=== PATIENT | female | born 1960 | race Caucasian/White ===

== ENCOUNTER 2024-08-22 07:24 | Outpatient (REF) | payer MEDICARE, MEDICAID, SELFPAY ==
--- NOTE | ~2024-08-22 | CT_ITS ---
EXAMINATION: CT HEAD WITHOUT CONTRAST CLINICAL INFORMATION: MCI COMPARISON: None available. TECHNIQUE: Contiguous axial imaging was performed from the skull base to vertex without intravenous administration of contrast. This CT examination was performed using dose optimization techniques as appropriate, variously including the following: *Automated exposure control *Adjustment of mA and/or kV according to patient size (this includes techniques or standardized protocols for targeted exams where dose is matched to indication/reason for exam; i.e. extremities or head) *Use of iterative reconstruction technique DLP: 771 mGy-cm FINDINGS: No acute intracranial hemorrhage, mass effect, midline shift, hydrocephalus or herniation. Prominence of the extra-axial CSF spaces cerebral sulci involving mostly the frontal poles. [place]-white matter differentiation is normal. Bilateral multifocal patchy deep periventricular white matter hypodensities involving centrum semiovale and melo radiata. Craniocervical junction demonstrates normal position of the cerebellar tonsils. Posterior cranial fossa contents demonstrated no acute hemorrhage or mass effect. Calcified plaques in the cavernous supraclinoid segments both ICAs and V4 segments of the vertebral arteries. No acute fracture, bony calvarium. No air-fluid levels in the paranasal sinuses. Poor pneumatization right frontal sinus. Tympanic cavities and mastoid cells are aerated. Pneumatized right petrous apex, congenital. CT/CT head/brain wo IV con IMPRESSION: No acute intracranial hemorrhage. Small vessel occlusive disease. Bifrontal lobe atrophy. Atherosclerosis disease, intracranial. Electronically signed by: Walter Carroll MD 08/22/2024 08:04 AM EDT
--- OUTSIDE RECORDS SUMMARY | 2024-08-22 07:26 | XMS_ITS | Clinical Summary ---
Author Organization [facility] Facility Address [address] [address] Care Team Providers Care [employer] Professor Name Role Phone Ge Brown MD Primary Care Provider [phone] Allergies Active Allergy Reactions Criticality Noted Date Comments Hydrochlorothiazide 03/08/2021 Lactose Diarrhea 10/23/2017 Medications zolpidem (AMBIEN) 10 MG tablet Take 10 mg by mouth at night if needed 09/14/2022 Active Trospium Chloride ER 60 MG capsule sustained-relea se 24 hr Take by mouth 1 (one) time each day 07/08/2022 Active tolterodine LA (DETROL LA) 4 MG 24 hr capsule Take by mouth 1 (one) time each day 08/27/2022 Active Spiriva Respimat 2.5 MCG/ACT aerosol solution INHALE 1 PUFF INTO THE LUNGS DAILY 08/05/2022 Active spironolactone (ALDACTONE) 25 MG tablet Take 50 mg by mouth 1 (one) time each day 08/21/2022 Active predniSONE (DELTASONE) 10 MG tablet TAKE 4 TABS BY MOUTH DAILY X3 DAYS, 3 TABS DAILY X3 DAYS, 2 TABS DAILY X3 DAYS, 1 TAB DAILY X3 DAYS 09/01/2022 Active pantoprazole (PROTONIX) 20 MG EC tablet Take 20 mg by mouth 1 (one) time each day 09/12/2022 Active omeprazole OTC (PriLOSEC OTC) 20 MG EC tablet Take 20 mg by mouth 08/03/2016 Active metoprolol tartrate 25 MG tablet Take 25 mg by mouth 05/01/2017 Active meloxicam (MOBIC) 7.5 MG tablet Take 7.5 mg by mouth 1 (one) time each day 09/04/2022 Active losartan (COZAAR) 100 MG tablet Take 100 mg by mouth 1 (one) time each day 07/12/2022 Active levothyroxine (SYNTHROID, LEVOTHROID) 175 MCG tablet Take 175 mcg by mouth 1 (one) time each day 08/22/2022 Active lamoTRIgine (LaMICtal) 200 MG tablet Take 200 mg by mouth 1 (one) time each day in the evening 10/03/2022 Active labetalol (NORMODYNE) 100 MG tablet TAKE 1 TABLET BY MOUTH 2 TIMES DAILY FOR 180 DAYS. 08/21/2022 Active hydrALAZINE 50 MG tablet Take 50 mg by mouth 08/09/2022 Active furosemide (LASIX) 20 MG tablet Take 20 mg by mouth 1 (one) time each day 09/04/2022 Active fenofibrate (TRICOR) 54 MG tablet Take 54 mg by mouth 1 (one) time each day 07/31/2022 Active clonazePAM (KlonoPIN) 2 MG tablet Take 2 mg by mouth in the morning and 2 mg in the evening. 09/07/2022 Active dicyclomine (BENTYL) 10 MG capsule TAKE 1 TO 2 CAPSULES BY MOUTH 4 TIMES A DAY NEEDED 08/05/2022 Active buPROPion XL (Wellbutrin XL) 300 MG 24 hr tablet Take 300 mg by mouth 09/23/2011 Active ARIPiprazole (ABILIFY) 15 MG tablet Take 15 mg by mouth 1 (one) time each day 10/01/2022 Active Albuterol Sulfate 108 (90 Base) MCG/ACT aerosol powder Inhale 03/06/2017 Acti ve amLODIPine (NORVASC) 10 MG tablet Take 10 mg by mouth 1 (one) time each day Active Active Problems Problem Noted Date Diagnosed Date Essential hypertension 10/14/2022 Obstructive sleep apnea 10/12/2022 10/13/19 Chronic obstructive pulmonary disease 10/12/2022 10/12/2022 Chronic low back pain 10/12/2022 10/12/2022 Syndrome of inappropriate vasopressin secretion 10/12/2022 10/12/2022 History of cardiac catheterization 08/19/2022 10/12/2022 Overview (10/12/2022): Done on 07/22/2022 at [facility] indication:shortness of breath w/ exertion Last Assessment & Plan: Heart catheterization revealed no obstructive coronary disease all arteries documented as having only minor luminal irregularities. We emphasized given her tobacco usage and risk factors this is very good news she does in fact have severe pulmonary hypertension. She has chronic dyspnea she is a longtime smoker she is still smoking three quarters of a pack of cigarettes per day she knows she should be a non-smoker it has been very challenging for her to give this up. Main risk factor modification Dyspnea on exertion 06/20/2022 10/12/2022 Overview (10/12/2022): Last Assessment & Plan: Left heart cath in addition to right heart cath as above Pulmonary hypertension 06/08/2022 Overview (10/12/2022): - Likely WHO group 3 with likely some contribution of group 2 etiology but has not had a formal right heart cath as yet - Echocardiogram from 03/25/2022 showing mild, concentric left ventricular hypertrophy with normal LV cavity size and vigorous systolic function, normal regional wall motion with ejection fraction of 65 to 70%, grade 2 diastolic dysfunction consistent with increased left atrial pressure, grossly normal RV size and systolic function, no hemodynamically significant valve disease, severe pulmonary hypertension with RV systolic pressure estimated at 73 mmHg, dilated ascending aorta at 4.2 cm, normal aortic root - Has a known history of advanced COPD followed by pulmonology and for which she is for unclear reasons not on continuous oxygen but is on O2 via nasal cannula at night Last Assessment & Plan: Patient underwent heart catheterization that indicated severe pulmonary hypertension it was suggested that Lasix be considered. She is on spironolactone hydralazine, maximum dose of amlodipine. She was under the impression that a new medication was started by her primary family practice md but it does not appear that she is on Lasix. I will collaborate with Dr. Siddiqui. In the meantime emphasized the importance of smoking cessation. Following a low-sodium diet not drinking fluids excessively she states she drinks a significant amount of diet soda per day. Continue to be under the care of neurology as well try to use her oxygen especially if she is desaturating. She did not bring oxygen with her today she was 95% assessed while seated. Hypoxia 04/05/2022 10/12/2022 Overview (10/12/2022): 03/01/2022 overnight oximetry on room air showed: 1. Lowest SPO2 is 76% basal is 86%. 2. Time spent less than 88% 375. 3. Supplemental oxygen as necessary to use during sleep. Hypoxemia 09/22/2021 10/12/2022 Overview (10/12/2022): Last Assessment & Plan: This noted borderline hypoxemia 91% on room air. We will do a 6-minute walk testing her next appointment. Nodule of lung 02/15/2021 10/12/2022 Overview (10/12/2022): Last Assessment & Plan: Patient is a longtime former smoker who is part of her lung cancer screening program who smoked a pack per day starting at age 16 up until July or August 2020. She had a low-dose CT scan of the chest done on 01/22/2021 compared with 1 year prior showing a left lower lobe masslike abnormality along the pleural lining. Follow-up screening CT scan of the chest with most recent done on 10/25/21. Which shows up to approximately 5.5 x 5.5 x 2.5 cm masslike consolidative process along the posterior mediastinal pleural surface of the mid portion medial aspect left lower lobe with adjacent pleural fluid. Overall increased in size when compared to 2019 however similar when compared to 2020 and 2021. Recommending a follow-up chest CT scan in 1 years time to ensure stability of area in question will be due in October 2022. Severe obesity 01/26/2021 10/12/2022 Overview (10/12/2022): Last Assessment & Plan: 60-year-old woman with severe obesity who did put a pause on her work-up for bariatric surgery due to a lung nodule found on her screening CT. At this point, I do think she is fine to proceed with her bariatric work-up and we did discuss this at length. Body mass index 30+ - obesity 02/17/2020 Mastodynia 10/23/2017 10/12/2022 Osteoarthritis of knee 09/18/2017 History of cerebrovascular accident 09/11/2017 10/12/2022 Overview (10/12/2022): 08/2011 Deep venous thrombosis 09/11/2017 Overview (10/12/2022): Antepartum DVT. No current anticoagulant. 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 0 10/12/2022 Tobacco use 09/11/2017 10/12/2022 Lipoma of breast 09/05/2017 10/12/2022 Vitamin D deficiency 08/16/2017 10/12/2022 Gastroesophageal reflux disease 08/11/2017 10/12/2022 Restless legs 08/11/2017 10/12/2022 Patent foramen ovale 09/02/2011 10/12/2022 Benign neoplastic disease 07/02/20092022 Panic disorder (episodic paroxysmal anxiety) 12/200810/12/2022 Resistant hypertensive disorder 05/19/2008 10/12/2022 Hypothyroidism 11/29/2007 10/12/2022 Hypercholesterolemia 11/29/2007 10/12/2022 Bipolar disorder 11/29/2007 10/12/2022 Overview (10/12/2022): Colleen GUSMAN manages psych medspanic attacks and agorophobia Adopted 11/29/2007 10/12/2022 Urge incontinence of urine 11/29/200710/12 Immunizations Immunization Administration Dates Next Due H1N1 Inj 03/10/2009 Influenza Whole 11/14/2011,11/13/2008 Influenza, MDCK, PF, Quadrivalent 12/07/2020 Influenza, Unspecified 11/24/2016,2016,10/13/2015, 5,12/17/2013,11/16/2012,10/21/2010, 010,11/29/2007,11/13/2004 Pneumococcal Conjugate 13-Valent 08/03/2016 Pneumococcal Polysaccharide 11/13/2004 Td, Unspecified 09/15/2007 Tdap 02/11/2013 Family History Relation Status Comments Father Mother Social History Tobacco Use Types Packs/Day Years Used Date Smoking Tobacco: Every Day Cigarettes Tobacco Cessation:Ready to Q uit: Not Asked; Counseling Given: Not Answered Alcohol Use Standard Drinks/Week Comments Yes 0 (1 standard drink = 0.6 oz pur e alcohol) Comments Unknown Sex and Gender Information Value Date Recorded Sex Assigned at Not on file Legal Sex Female 5:01 PM EST Gender Identity Not on file Sexual Orientation Not on file Last Filed Vital Signs Vital Sign Reading Time Taken Comments Blood Pressure 136/64 10/14/2022 10:50 AM EDT Pulse 84 10/14/2022 10:50 AM EDT Temperature - - Respiratory Rate - - Oxygen Saturation 97% 10/14/2022 10:50 AM EDT Inhaled Oxygen Concentration - - Weight 99.9 kg (220 lb 3.2 oz) 10/14/2022 10:50 AM EDT Height - - Body Mass Index - - Plan of Treatment Health Maintenance Due Date Last Done Comments Breast Cancer Screening 1960 Colorectal Cancer Screening: Annual FOBT 11/11/2007 Colorectal Cancer Screening: Colonoscopy 11/11/2007 Colorectal Cancer Screening: Sigmoidoscopy 11/11/2007 Pneumococcal Vaccine: 50+ Years (3 of 3 - PCV20 or PCV21) 09/28/2016 08/03/2016, 11/13/2004 Influenza Vaccine (#1) 2024 , 11/24/2016, 03/25/2016, Additional history exists Pneumococcal Vaccine: Peds (0 to 5 Years) and At-Risk Patients (6 to 49 Years) Discontinued 08/03/2016, 11/13/2004 Hepatitis B Vaccine Aged Out No longe r eligible based on patient's age to complete this topic Insurance Care Teams Church History Professor Relationship Specialty Start Date End Date Ge Brown MD [address] [place] [id number] PCP - General Internal Medicine 06/13/22
--- OUTSIDE RECORDS SUMMARY | 2024-08-22 07:26 | XMS_ITS | Clinical Summary ---
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 07/15/2024 2:50 PM EDT 07/15/2024 2:50 PM EDT Niurka Bruner [facility] LAB BLOOD ORDERABLES Fi nal Result [facility] [address] [place] [address], [place] [phone] * Trichomonas vaginalis antigen (07/09/2024 11:34 AM EDT) [facility] Trichomonas vaginalis Negative Negative 07/09/2024 7:14 PM EDT [facility] Swab Vaginal structure / Unknown Non-blood Collection / Unknown 07/09/2024 11:34 AM EDT 07/09/2024 11:34 AM EDT [facility] MICROBIOLOGY - GENERAL OR DERABLES Final Result Performing Organization Address [facility] Co de Phone Number [facility] [address] [place] [address], [place] [phone] * (ABNORMAL) Wet prep, genital (07/09/2024 11:34 AM EDT) Clue Cells, Wet Prep Positive(A) Negative 07/09/2024 7:05 PM EDT [facility] Yeast, Wet Prep Negative Negative 07/09/2024 7:05 PM EDT [facility] Trichomonas, Wet Prep Indeterminate Negative 07/09/2024 7:05 PM EDT [facility] Comment:Refer to Trichomonas antigen. Swab Vaginal structure / Unknown Non-blood Collection / Unknown 07/09/2024 11:34 AM EDT 07/09/2024 11:34 AM EDT [facility] MICRO[facility]OLOG[facility] - GENERAL OR DERABLES Final Result Performing Organization Address [facility] de Phone Number [facility] [address] [place] [address], [place] [phone] * (ABNORMAL) Culture urine (07/09/2024 11:34 AM EDT) Culture, Urine >100,000 CFU/mL Escherichia coli(A) JHOANA 07/13/2024 8:46 AM EDT [facility] Culture, Urine 10,000-49,000 CFU/mL Pseudomonas aeruginosa(A) JHOANA 07/13/2024 8:46 AM EDT [facility] Comment: The organism value for this result has been updated. These results have been appended to the previously preliminary verified report. This is an edited result. Previous organism was Gram negative bacilli on 07/12/2024 at 0828 EDT. Urine Urine specimen obtained by clean catch procedure / Unknown Non-blood Collection / Unknown 07/09/2024 11:34 AM EDT 07/09/2024 11:34 AM EDT Narrative Organism Antibiotic Method Susceptibility Escherichia coli Amoxicillin/Clavulanate JHOANA <=2 ug/ml: Susceptible Escherichia coli Ampicillin/Sulbactam JHOANA <=2 ug/ml: Susceptible Escherichia coli Piperacillin/Tazobactam JHOANA <=4 ug/ml: Susceptible Escherichia coli Cefazolin (Urine) JHOANA <=1 ug/ml: Susceptible Escherichia coli Cefoxitin JHOANA <=4 ug/ml: Susceptible Escherichia coli Ceftazidime JHOANA <=0.5 ug/ml: Susceptible Escherichia coli Ceftriaxone JHOANA <=0.25 ug/ml: Susceptible Escherichia coli Cefepime JHOANA <=0.12 ug/ml: Susceptible Escherichia coli Meropenem JHOANA <=0.25 ug/ml: Susceptible Escherichia coli Amikacin JHOANA 2 ug/ml: Susceptible Escherichia coli Gentamicin JHOANA <=1 ug/ml: Susceptible Escherichia coli Ciprofloxacin JHOANA <=0.06 ug/ml: Susceptible Escherichia coli Levofloxacin JHOANA <=0.12 ug/ml: Susceptible Escherichia coli Nitrofurantoin JHOANA <=16 ug/ml: Susceptible Escherichia coli Trimethoprim/Sulfame thoxazol e JHOANA <=20 ug/ml: Susceptible Pseudomonas aeruginosa Piperacillin/Tazobactam JHOANA <=4 ug/ml: Susceptible Pseudomonas aeruginosa Ceftazidime JHOANA 2 ug/ml: Susceptible Pseudomonas aeruginosa Cefepime JHOANA 0.5 ug/ml: Susceptible Pseudomonas aeruginosa Meropenem JHOANA 1 ug/ml: Susceptible Pseudomonas aeruginosa Amikacin JHOANA 4 ug/ml: Susceptible Pseudomonas aeruginosa Ciprofloxacin JHOANA 0.25 ug/ml: Susceptible Pseudomonas aeruginosa Levofloxacin JHOANA 1 ug/ml: Susceptible [facility] LAB MICROBIOLOGY - GENERAL OR DERABLES Final Result [facility] ([facility]) [facility] [address] [place] [address], * Treponema pallidum antibody with reflex to RPR and particle agglutination (06/28/2024 9:36 AM EDT) T. Pallidum Antibodies Negative Negative LAB CHEMISTRY METHOD 06/28/2024 12:13 PM EDT [facility] Blood Venous blood specimen / Unknown Venipuncture / Unknown 06/28/2024 9:36 AM EDT 06/28/2024 10:17 AM EDT us Shaylee Goode MD LAB BLOOD ORDERABLES Final Result [facility] [address] [place] [address], * Annual BMP Blood Test (07/06/2023) Pathologist [facility] Annual BMP Blood Test abstracted Historical Provider HEALTH MAINTENANCE Final Result * Lipid panel (07/06/2023) Pathologist [facility] LDL/HDL Ratio 3 0 - 4 Triglycerides 84 0 - 150 mg/dL Cholesterol 159 0 - 200 mg/dL HDL 55 >=40 mg/dL LDL Cholesterol 88 0 - 100 mg/dL Blood Venous blood specimen / Unknown Historical Provider LAB BLOOD ORDERABLES Qian l Result * SCREENING MAMMOGRAPHY BI 2-VIEW BREAST INC CAD (07/21/2022 1:12 PM EDT) Anatomical Region Laterality Modality Radiographic Martina ging 07/13/2021 1:27 PM EDT Narrative 07/22/2022 9:12 AM EDT This is a summary report. The complete report is available in the patient's medical record. If you cannot access the medical record, please contact the sending organization for a detailed fax or copy. Full field digital screening tomosynthesis mammography, reviewed with CAD and compared to previous mammograms of 07/08/2020 and 07/13/2021. The breasts are composed of fatty and fibroglandular tissue. No suspicious mass, architectural distortion or suspicious calcifications are identified. IMPRESSION: : No mammographic evidence of malignancy. BIRADS 1-Negative; N. 5 year breast cancer risk assessment 1.3 % Lifetime breast cancer risk assessment 5.5 % Breast cancer risk category Low (<15%) Procedure Note Shanell Piper MD - 03/20/2023 This is a summary report. The complete report is available in thepatient's medical record. If you cannot access the medical record, pleasecontact the sending organization for a detailed fax or copy. Full field digital screening tomosynthesis mammography, reviewed with CADand compared to previous mammograms of 07/08/2020 and 07/13/2021. Thebreasts are composed of fatty and fibroglandular tissue. No suspiciousmass, architectural distortion or suspicious calcifications areidentified. IMPRESSION: : No mammographic evidence of malignancy. BIRADS 1-Negative; N. 5 year breast cancer risk assessment 1.3 % Lifetime breast cancer risk assessment 5.5 % Breast cancer risk category Low (<15%) Lola Fink MD IMG XR PROCEDURES Final Result * Cervical Cancer Screening: HPV (07/21/2020) Cervical Cancer Screening: HPV negative, abstracted Historical Provider HEALTH MAINTENANCE Final Result * Colonoscopy (09/28/2018) Pathologist [facility] Colonoscopy no interpretation , abstracted Anatomical Region Laterality Modality Other Historical Provider HEALTH MAINTENANCE Final Result from Last 3 Months or Most Recently Relevant to Health Maintenance Insurance [place] - [place]ICARE Advance Directives Documents on File Type Date Recorded Patient [employer] Expl anation Health Care Decision (hx) 04/23/2009 AD KARIMI DIRECTIVE Health Care Decision (hx) 04/23/2009 AD KARIMI DIRECTIVE Health Care Decision (hx) 04/23/2009 AD KARIMI DIRECTIVE Health Care Decision (hx) 04/23/2009 AD KARIMI DIRECTIVE Health Care Decision (hx) 04/23/2009 AD KARIMI DIRECTIVE Health Care Decision (hx) 04/23/2009 AD KARIMI DIRECTIVE Health Care Decision (hx) 04/23/2009 AD KARIMI DIRECTIVE Health Care Decision (hx) 04/23/2009 AD KARIMI DIRECTIVE Health Care Decision (hx) 04/23/2009 AD KARIMI DIRECTIVE Health Care Decision (hx) 04/23/2009 AD KARIMI DIRECTIVE Health Care Decision (hx) 04/23/2009 AD KARIMI DIRECTIVE Health Care Decision (hx) 04/23/2009 AD KARIMI DIRECTIVE Health Care Decision (hx) 04/23/2009 AD KARIMI DIRECTIVE Health Care Decision (hx) 04/23/2009 AD KARIMI DIRECTIVE Health Care Decision (hx) 04/23/2009 AD KARIMI DIRECTIVE Health Care Decision (hx) 04/23/2009 AD KARIMI DIRECTIVE Health Care Decision (hx) 04/23/2009 AD KARIMI DIRECTIVE Health Care Decision (hx) 04/23/2009 AD KARIMI DIRECTIVE Health Care Decision (hx) 04/23/2009 AD KARIMI DIRECTIVE Health Care Decision (hx) 04/23/2009 AD KARIMI DIRECTIVE Health Care Decision (hx) 04/23/2009 AD KARIMI DIRECTIVE Health Care Decision (hx) 04/23/2009 AD KARIMI DIRECTIVE Care Teams Manager Filter Relationship Specialty Start Date End Date Lola Fink MD [address] [place] [phone] PCP - General Internal Medicine 05/02/24
== END 2024-08-22 07:25 | disposition home or self-care (01) ==
LOC: HO.CT 07:24
PROVIDERS: PCP Internal Medicine; Visit Provider Psychiatry & Neurology Neurology
DX: G31.84 Mild cognitive impairment of uncertain or unknown etiology (principal)
CPT/HCPCS: 70450

== ENCOUNTER → 2024-08-22 07:26 | Outpatient (BNV) | payer MEDICARE, MEDICAID, SELFPAY | PROVIDERS: PCP Internal Medicine; Visit Provider Radiology Diagnostic Radiology | DX: I70.90 Unspecified atherosclerosis (principal); G31.89 Other specified degenerative diseases of nervous system; I67.89 Other cerebrovascular disease | CPT/HCPCS: 70450 ==

== ENCOUNTER 2024-09-09 09:43 | Outpatient (AMB) | payer MEDICARE, MEDICAID, SELFPAY ==
--- NOTE | 2024-09-09 09:48 | A.OFFVIS_ITS ---
Intake Visit Reasons: results of scan and labs Allergies No Known Allergies Allergy (Verified 09/04/24 08:08) HPI Comments Details: 63 yo LH woman with diagnoses of bipolar disorder, depression, anxiety, and COPD was here for forgetfulness. She was also finding herself unsteady and losing balance. She has been taking numerous meds for psychiatric disease including 6mg clonazepam daily. She was not sleepy during day time and sleep was not bad. She was not drinking alcohol or using drugs. No h/o head injury. Family history was not known as she was adapted. She continues to c/o being forgetful and problem with balance. [facility] Medical History (Updated 09/09/24 @ 10:04 by Shaylee Goode MD) Other amnesia MCI (mild cognitive impairment) Review of Systems Const Details: Constitutional:?No fever, chills, fatigue, weight loss, or night sweats. HEENT:?No headache, vision changes, hearing loss, nasal congestion, sore throat. Neurological:?No dizziness, syncope, seizures, numbness, tingling, weakness, tremors, memory loss. Psychiatric:?No anxiety, depression, mood swings, sleep disturbance, or hallucinations. Endocrine:?No heat/cold intolerance, polydipsia, polyuria, or hair/skin changes. Hematologic/Lymphatic:?No easy bruising, bleeding, or lymphadenopathy. Integumentary (Skin):?No rash, lesions, itching, or color changes. ? Physical Exam Neuro Other: Mental Status: Alert and oriented to person, place, and time. Normal attention. Normal spontaneous speech, fluency, and comprehension. No obvious issues with mood and memory. Affect is appropriate. Cranial Nerves: CN II: Visual bennett full to confrontation, visual acuity intact. CN III, IV, : Pupils equal, round, reactive to light and accommodation. Extraocular movements are normal. CN V: Facial sensation is normal. CN VII: Facial movements symmetrical. CN VIII: Hearing intact to bedside conversation is normal. CN IX, X: Palate elevates symmetrically. CN XI: Shoulder shrug and head turn symmetrical. CN XII: Tongue midline without atrophy or fasciculations. Extrapyramidal: Full facial expressions and blinking. No rigidity. Movements are appropriate with no tremor or abnormality. Speech: Normal; no dysarthria or tremor. Assessment & Plan Assessment & Plan (1) MCI (mild cognitive impairment): Comment: CT brain WO at [facility] in August 2024: Mild atrophy that is more prominent in left frontal lobe Labs at [facility] in June 2024: Treponemal Abs neg Code(s): G31.84 - Mild cognitive impairment of uncertain or unknown etiology Category: Medical (2) Brain atrophy: Comment: CT brain WO at [facility] in August 2024: Mild atrophy that is more prominent in left frontal lobe MRI brain WO at [facility] in 2022: Same as in CT, minimal MVD Code(s): G31.9 - Degenerative disease of nervous system, unspecified Category: Medical Plan Impression: a: Cognitive dysfunction and unsteadiness, multifactorial including the meds b: Cerebral atrophy, more pronounced in frontal lobes, especially the left. It might be a chronic issue from a congential cause Rec: a: Continue psychiatric f/u b: Adjust meds to avoid sedative or cognitive side effects, if that was possible c: B12 level Orders: Orders Vitamin B12 and Folate Today G31.84 - Mild cognitive impairment of uncertain or unknown etiology Referrals Neuropsychiatry Referral G31.84 - Mild cognitive impairment of uncertain or unknown etiology Coding Level of Care Code Est Pt Level 4 (50665) Diagnoses MCI (mild cognitive impairment) G31.84 Brain atrophy G31.9
--- OUTSIDE RECORDS SUMMARY | 2024-09-09 10:39 | XMS_ITS | Clinical Summary ---
Author Organization [facility] Facility Address [address] [address] Care Team Providers Care Switchboard Clerk Name Role Phone Ge Brown MD Primary Care Provider Allergies Active Allergy Reactions Criticality Noted Date [...] 10/12/2022 Overview (10/12/2022): Done on 07/22/2022 at [facility] indication:shortness of breath w/ exertion Last [...] new medication was started by her primary call center nurse but it does not appear that she [...] to complete this topic Insurance Care Teams Switchboard Clerk Relationship Specialty Start Date End Date Ge Brown MD [address] [place] [phone] PCP - General Internal Medicine 06/13/22
--- OUTSIDE RECORDS SUMMARY | 2024-09-09 10:39 | XMS_ITS | Clinical Summary ---
Author Organization [facility] Address [address] [place] [address] Phone Care Team Providers Care End Frazer Name Role Phone Lola Fink MD Primary Care Provider [phone] Allergies Active Allergy Reactions Criticality Noted Date [...] SUPPLY MISC) Misc. Devices (Fingertip Pulse Oximeter) [facility] 1 Each 0 05/06/2022 Sig - Route: [...] (SEVEN) DAYS. 2 mL 3 025 Active furosemide (LASIX) 20 mg tablet TAKE 1 TABLET BY MOUTH EVERY DAY 90 tablet 1 025 2024 Discontinued levothyroxine (SYNTHROID, LEVOTHROID) 175 mcg tablet TAKE 1 TABLET BY MOUTH EVERY DAY 90 tablet 1 025 2024 Discontinued semaglutide (Wegovy) 1 mg/0.5 mL injection pen Inject 1 mg under the skin every 7 (seven) days. 2 mL 3 025 2024 Discontinued Active Problems Problem Noted Date Diagnosed Date Smoking greater than 40 pack years 05/16/2024 (HFpEF) heart failure with p reserved ejection fraction ([facility] V24, [facility] V28) 07/14/2023 Overview (11/22/2023): - See right [...] (BMI) of 40.0 to 44.9 in adult ([facility] V24, [facility] V28) 04/12/2023 Tobacco abuse 04/12/2023 Hx of cardiac catheterization 04/12/2023 Overview (04/12/2023): Done on 07/22/2022 at [facility] indication:shortness of breath w/ exertion Hx of deep venous thrombosis 04/12/2023 Overview (04/12/2023): Antepartum DVT. No current anticoagulant. History of stroke 04/12/2023 Obstructive sleep apnea hypopnea, mild Overview (04/12/2023): [facility] Home Sleep Apnea Test: Date 06/07/2022; [...] new medication was started by her primary membership manager but it does not appear that she [...] current smoker who is [facility] the [facility] She presents today for follow up of [...] Encounters Date Type Department Care Team Description 08/23/2024 Telephone [address] [phone] Niurka Bruner NP dme request 08/21/[address] [phone] Niurka Bruner NP dme request 07/16/2024 Telephone Obstetrics and Gynecology - [place] [place] [phone] Petrona Ash CNM pt returing call from the office 07/16/[address] [phone] Niurka Bruner NP DME request ([employer]) 07/15/2024 2:20 PM EDT Office Visit Pul[address] [phone] Niurka Bruner NP Pulmonary emphysema, unspecified emphysema type (CMS/HCC V24, CMS/HCC V28) (Primary Dx); Smoking greater than 40 pack years; Pulmonary hypertension (CMS/HCC V24, CMS/HCC V28); Pulmonary nodule, left; Obesity (BMI 30-39.9); Non-seasonal allergic rhinitis, unspecified trigger; COPD with acute exacerbation (CMS/HCC V24, CMS/HCC V28) 07/15/2024 2:00 PM EDT Ancillary Procedure Pulmonolgy [address] [phone] Pulmonary emphysema, unspecified emphysema type ([facility] V24, [facility] V28) 07/09/2024 11:00 AM EDT Office Visit Obstetrics and Gynecology - [facility] [address] [place] [phone] Petrona Ash CNM Vaginal discharge (Primary Dx); Vaginal odor; Urinary urgency 07/09/2024 Telephone Gastroenterology - 299 [facility] [address] [facility] [address] [place] [phone] Aubree King NP 06/28/2024 Telephone Gastroenterology - 299 [facility] 299 [facility] [address] [place] [phone] Omega Ingram MD 06/17/2024 Telephone Gastroenterology - [address] [place] [phone] Yris Betts MA 06/13/2024 Telephone Internal Medicine - [place] 175 [facility] [address] [place] [phone] Lola Fink MD [place]: Referral(gastro) from Last [...] obesity with BMI of 4 5.0-49.9, adult ([facility] V24, [facility] V28) 09/05/2017 DX:Morbid obesity wit h BMI of 45.0-49.9, adult ([facility]) Hypothyroidism 09/11/2017 DX:Hypothyroidis m Hypercholesteremia 09/11/2017 DX:Hyperchole [...] attacks COPD (chronic obstructive pu lmonary disease) ([facility] V24, [facility] V28) 09/11/2017 DX:COPD (chronic o bstructive pulmonary disease) ([facility]); COMMENT: Diag w/ emphysema 2015 GERD (gastroesophageal [...] 9:45 AM EDT Office Visit Pulmonolgy - [place] 175 [facility] [address] [place] [phone] Niurka Bruner NP 175 [facility] [address] [place] [address] 10/01/2024 11:00 AM EDT Office Visit Internal Medicine - [place] 175 [facility] [address] [place] [phone] Lola Fink MD 175 [facility] [address] [place] [phone] 10/09/2024 11:00 AM EDT Ancillary Procedure [facility] Cardiology [facility] 101 300 [facility] [address] [place] [phone] 11/13/2024 8:40 AM EDT Office Visit [facility] Cardiology [facility] - [facility] 154 300 [facility] [address] [place] [phone] Andrei Knowles NP [address] [place] [address] Health Maintenance Due Date Last Done Comments Pneumococcal Vaccine: 50+ Years (3 of 3 - PPSV23, PCV20 or PCV21) 09/28/2016 08/03/2016, 11/13/2004 Hepatitis C Screening 01/22/2022 Osteoporosis Screening (Bone Density Screening) 01/22/2022 Social Influencers of Health Screening 01/22/2022 COVID-19 Vaccine ( season) 2023 12/08/2021, 05/24/2021, 11/14/2020, Additional history exists Depression Screening 02/14/2024 12/24/2023 Hypertension/CHF/CAD Annual BMP Blood Test 07/05/2024 07/06/2023, 07/06/2023 Breast Cancer Screening 07/21/2024 07/22/19, 07/13/2021, 07/08/2020 Influenza Vaccine (#1) 2024 , 09/19/2022, 12/08/2021, Additional history exists Falls Risk Assessment 12/21/2024 12/22/2023 Medicare Annual Wellness Visit 12/21/2024 12/22/2023 Cervical Cancer Screening: HPV 07/21/2025 07/21/2020 DTaP,Tdap,and [...] PM EDT Pulmonary emphysema, unspecified emphysema type ([facility] V24, [facility] V28) IMMUNOGLOBULIN IGE Routine 07/15/2024 2: 50 PM EDT Emphysematous bleb ([facility] V24, [facility] V28) [id number] Routine 07/15/2024 2 :50 PM EDT Pulmonary emphysema, unspecified emphysema type ([facility] V24, [facility] V28) CBC AND DIFFERENTIAL Routine 07/15/2024 2:50 PM EDT Pulmonary emphysema, unspecified emphysema type ([facility] V24, [facility] V28) TRICHOMONAS VAGINALIS ANTIGEN Routine 07/09/2024 11:34 [...] K/mcL LAB [facility] RBC 3.80 3.80 - 4.80 M/mcL LAB HEMETOLOGY METHOD 07/15/2024 6[facility] Hemoglobin 11.2(L) 11.5 - 16.0 g/dL LAB HEMETOLOGY METHOD 07/15/2024 6:35 PM [facility] Hematocrit 33.6(L) 35.0 - 47.0 % LAB HEMETOLOGY METHOD 07/15/2024 6:35 PM EDT [facility] MCV 88.2 79.0 - 98.0 FL LAB HEMETOLOGY METHOD 07/15/2024 6:[facility] MCH 29.4 27.0 - 32.0 pcg LAB HEMETOLOGY METHOD 07/15/2024 6:[facility] MCHC 33.3 32.0 - 37.0 g/dL LAB HEMETOLOGY METHOD 07/15/2024 6:35 PM EDT [facility] RDW 12.7 11.0 - 15.0 % LAB HEMETOLOGY METHOD 07/15/2024 6:35 PM EDT [facility] Platelets 287 130 - 400 K/mcL LAB HEMETOLOGY METHOD 07/15/2024 6:35 PM EDT [facility] MPV 9.8 7.0 - 11.0 FL LAB HEMETOLOGY METHOD 07/15/2024 6:35 PM EDT [facility] NRBC 0.0 <1.0 % LAB HEMETOLOGY METHOD 07/15/2024 6:35 PM EDT [facility] NRBC Absolute 0.00 <0.10 K/mcL LAB HEMETOLOGY METHOD 07/15/2024 6:35 PM EDT [facility] Neutrophils Relative 76.8 % LAB HEMETOLOGY METHOD 07/15/2024 6:35 PM EDT [facility] Lymphocytes Relative 9.1 % LAB HEMETOLOGY METHOD 07/15/2024 6:35 PM EDT [facility] Monocytes Relative 7.0 % LAB HEMETOLOGY METHOD [facility]2024 6[facility] Eosinophils Relative 6.1 % LAB HEMETOLOGY METHOD 07/15/2024 6:35 PM EDT [facility] Basophils Relative 0.5 % LAB HEMETOLOGY METHOD 07/15/2024 6:35 PM EDT [facility] Immature Granulocytes Relative 0.5 % LAB HEMETOLOGY METHOD 07/15/2024 6:35 PM EDT [facility] Neutrophils Absolute 7.86(H) 1.50 - 7.00 K/mcL LAB HEMETOLOGY METHOD 07/15/2024 6:35 PM EDT [facility] Lymphocytes Absolute 0.93(L) 1.00 - 5.00 K/mcL LAB HEMETOLOGY METHOD 07/15/2024 6:35 PM EDT [facility] Monocytes Absolute 0.72 0.20 - 1.00 K/[facility] LAB HEMETOLOGY METHOD 07/15/2024 6:35 PM EDT [facility] Eosinophils Absolute 0.62(H) 0.00 - 0.50 K/mcL LAB HEMETOLOGY METHOD 07/15/2024 6:35 PM EDT [facility] Basophils Absolute 0.05 0.00 - 0.20 K/[facility] LAB HEMETOLOGY METHOD 07/15/2024 6:35 PM EDT [facility] Immature Granulocytes Absolute 0.05(H) 0.00 - 0.03 K/[facility] LAB HEMETOLOGY METHOD 07/15/2024 6:35 PM EDT [facility] Blood Venous blood specimen / Unknown Venipuncture / Unknown 07/15/2024 2:50 PM EDT 07/15/2024 2:50 PM EDT Niurka Bruner [employer] LAB BLOOD ORDERABLES Fi nal Result [facility] [address] [place] [address], * (ABNORMAL) [id number] (07/15/2024 2:50 PM EDT) A-1 Antitrypsin 244(H) 90 - 200 mg/dL LAB CHEMISTRY METHOD 07/15/2024 7:19 PM EDT [facility] Blood Venous blood specimen / Unknown Venipuncture / Unknown 07/15/2024 2:50 PM EDT 07/15/2024 2:50 PM EDT Niruka Bruner [employer] LAB BLOOD ORDERABLES Fi nal Result [facility] [address] [place] [address], * Immunoglobulin IgE (07/15/2024 2:50 PM EDT) [facility] IgE 20.1 0.0 - 158.0 I Unit/mL LAB CHEMISTRY METHOD 07/15/2024 7:47 PM EDT [facility] Blood Venous blood specimen / Unknown Venipuncture / Unknown 07/15/2024 2:50 PM EDT 07/15/2024 2:50 PM EDT Niurka Bruner [employer] LAB BLOOD ORDERABLES Fi nal Result Performing Organization Address [facility] Co de Phone Number [facility] [address] [place] [address], * Trichomonas vaginalis antigen (07/09/2024 11:34 AM EDT) [facility] Trichomonas vaginalis Negative Negative 07/09/2024 7:14 PM EDT [facility] Swab Vaginal structure / Unknown Non-blood Collection / Unknown 07/09/2024 11:34 AM EDT 07/09/2024 11:34 AM EDT Petrona Ash CNM LAB MICROBIOLOGY - GENERAL OR DERABLES Final Result [facility] [address] [place] [address], [place] [phone] * (ABNORMAL) Wet prep, genital (07/09/2024 11:34 AM EDT) [facility] Clue Cells, Wet Prep Positive(A) Negative 07/09/2024 7:05 PM EDT [facility] Yeast, Wet Prep Negative Negative 07/09/2024 7:05 PM EDT [facility] Trichomonas, Wet Prep Indeterminate Negative 07/09/2024 7:05 PM EDT [facility] Comment:Refer to Trichomonas antigen. Swab Vaginal structure / Unknown Non-blood Collection / Unknown 07/09/2024 11:34 AM EDT 07/09/2024 11:34 AM EDT Petrona Ash [facility] LAB MICROBIOLOGY - GENERAL OR DERABLES Final Result [facility] [address] [place] [address], * (ABNORMAL) Culture urine (07/09/2024 11:34 AM EDT) Culture, Urine >100,000 CFU/mL Escherichia coli(A) JHOANA 07/13/2024 8:46 AM EDT [facility] Culture, Urine 10,000-49,000 CFU/mL Pseudomonas aeruginosa(A) JHOANA 07/13/2024 8:46 AM EDT [facility] Comment: The organism value for this [...] aeruginosa Levofloxacin JHOANA 1 ug/ml: Susceptible Petrona Ash CNM LAB MICROBIOLOGY - GENERAL OR DERABLES Final Result [facility] [address] [place] [address], [place] [phone] * Treponema pallidum antibody with reflex to RPR and particle agglutination (06/28/2024 9:36 AM EDT) [facility] T. Pallidum Antibodies Negative Negative LAB CHEMISTRY METHOD 06/28/2024 12:13 PM EDT [facility] Blood Venous blood specimen / Unknown Venipuncture / Unknown 06/28/2024 9:36 AM EDT 06/28/2024 10:17 AM EDT Shaylee Goode MD LAB BLOOD ORDERABLES Final Result [facility] [address] [place] [address], [place] [phone] * Annual BMP Blood Test (07/06/2023) [facility] Annual BMP Blood Test abstracted [facility] Provider HEALTH MAINTENANCE Final Result * Lipid panel (07/06/2023) LDL/HDL Ratio 3 0 - 4 Triglycerides [...] MAINTENANCE Final Result * Colonoscopy (09/28/2018) Pathologist [facility] Colonoscopy no interpretation , abstracted Anatomical Region Laterality Modality Other Historical Provider HEALTH MAINTENANCE Final Result from Last 3 Months or Most Recently Relevant to Health Maintenance Insurance [place]ARE [place]ICAID [place] Advance Directives Documents on File Type Date Recorded Patient Manager Ambulatory Expl anation Health Care Decision (hx) 04/23/2009 [...] DIRECTIVE Health Care Decision (hx) 04/23/2009 AD KARIIM DIRECTIVE Health Care Decision (hx) 04/23/2009 AD [...] (hx) 04/23/2009 AD KARIMI DIRECTIVE Care Teams End Frazer Relationship Specialty Start Date End Date Lola Fink MD [address] [place] [phone] PCP - General Internal Medicine 05/02/24
== END 2024-09-09 10:07 | disposition home or self-care (01) ==
LOC: HO.HSM 09:43
PROVIDERS: PCP Internal Medicine; Visit Provider Psychiatry & Neurology Neurology
DX: G31.84 Mild cognitive impairment of uncertain or unknown etiology (principal); G31.9 Degenerative disease of nervous system, unspecified
CPT/HCPCS: 99214

== ENCOUNTER 2024-09-09 09:43 | Outpatient (REF) | payer MEDICARE, MEDICAID, SELFPAY ==
--- OUTSIDE RECORDS SUMMARY | 2024-09-09 11:17 | XMS_ITS ---
Author Name [facility] Organization Unknown Care Team Organization Name Specialty Phone Email Start Date End Da te [facility] 12/21/2021 10/02/19 24
[2024-09-09 12:14] LABS: Folate 5.1 ng/mL (> or = 4.0); Vitamin B12 425 pg/mL (200-900)
== END 2024-09-09 09:44 | disposition home or self-care (01) ==
LOC: HO.LAB 09:43
PROVIDERS: PCP Internal Medicine; Visit Provider Psychiatry & Neurology Neurology
DX: G31.84 Mild cognitive impairment of uncertain or unknown etiology (principal); Z79.899 Other long term (current) drug therapy
CPT/HCPCS: 36415; 82607; 82746; 99212

== ENCOUNTER 2025-01-14 09:49 | Outpatient (AMB) | payer MEDICARE, MEDICAID, SELFPAY ==
[2025-01-14 09:58] VITALS: BMI 30.8
--- NOTE | 2025-01-14 09:58 | A.PHYSOV_ITS ---
Vital Signs 01/14/25 09:58 Height 5 ft 5 in Weight 185 lb BMI 30.8 Intake Visit Reasons: RT KNEE INJECTION Intake Note: Patient is 64 year old female in office today for cerivical result Team Foreman Required: No Allergies No Known Allergies Allergy (Verified 01/14/25 09:59) HPI Comments Details: History of Present Illness The patient is a 64 year old individual presenting for evaluation of neck and left shoulder pain. The patient has been experiencing numbness, tingling, and a pins and needles sensation in the left arm, with pain rated at 8/10 that radiates into the shoulder. This has interfered with the patient's ability to sleep. A cervical spine MRI performed on December 07, 2024, revealed severe bilateral foraminal stenosis at C4-C5, compressing the C5 nerve root. The patient has been performing physician-guided home exercises. Past interventions include bilateral knee injections on October 15, 2024, which provided relief, and a right shoulder injection approximately one year ago. The patient is a side-sleeper, which provokes pain when lying on the left side, and denies a history of diabetes. She reports pain with overhead activities. She also presents accompanied by her . Pain Description - Character: The patient describes numbness, tingling, and a pins and needles sensation. - Location and Radiation: The pain is in the left arm and radiates into the shoulder. - Severity: The pain is rated as 8/10. - Exacerbating Factors: Pain is worsened by lifting the arm, using the arm for activities like cooking, and lying on the left side. - Relieving Factors: Pain is absent when keeping the arm down at rest. - Associated Symptoms: The pain interferes with sleep. Results - Imaging: A cervical spine MRI from 12/07/2024 shows severe bilateral foraminal stenosis at C4-C5, compressing the C5 nerve root. [facility] Medical History (Updated 01/14/25 @ 15:08 by Giuseppe Faust DO) Cervical spinal stenosis Cervical radiculitis Rotator cuff impingement syndrome of left shoulder Other amnesia MCI (mild cognitive impairment) Surgical History (Updated 01/14/25 @ 10:01 by Ciara Deleon MA) History of appendectomy History of cholecystectomy (Unknown) Social History (Updated 01/14/25 @ 10:02 by Ciara Deleon MA) Household Members: Spouse Alcohol intake: current Alcohol intake frequency: does not drink Patient Tobacco Use Status: Current everyday Tobacco user Current occupational status: disabled Review of Systems Narrative Review of Systems - Neurological: Reports numbness, tingling, and a pins and needles sensation in the left arm. - Musculoskeletal: Reports neck pain and left arm pain that radiates to the shoulder. - Constitutional: Reports inability to sleep due to pain. - Endocrine: Denies diabetes. Physical Exam Exam Exam: Physical Exam - Cervical Spine: Tenderness to palpation over the posterior neck was noted. - Neurological: Positive Spurling's maneuver on the left reproduced pain radiating down the arm to the shoulder. - Musculoskeletal: Active abduction of the left arm exacerbated pain. Positive Ochoa and Neer signs, negative drop-arm test, negative shoulder apprehension test. Her gait was waddling without antalgia. Lumbar extension was restricted. Cervical range of motion was restricted in all planes. Neurological examination of upper and lower extremities was nonfocal. Patient demonstrated no upper motor neuron signs. Vital Signs: BMI result Body Mass Index 30.8 Office Procedures AMB Shoulder Injection AMB Shoulder Injection Procedure Details: After informed consent was obtained, posterior aspect of the left shoulder was prepped with Betadine. 1.5 in 22 gauge hypodermic needle was introduced percutaneously and advanced into the subacromial area. After negative aspiration for blood total volume of 6 cc containing 40 mg of triamcinolone and 2% lidocaine was injected without resistance. Patient tolerated procedure very well without complications with excellent anesthetic response. Shoulder Injection - : Left All charges added?: Procedure code (CPT) selection complete Office Meds Kenalog 40 mg/mL suspension for injection Performing Provider: Giuseppe Faust DO Performing Location: [facility] Administered by: Giuseppe Faust DO on 01/14/25 10:36 Dose Route Admin Location Dispensed Lot Number Expiration Date [facility] Fast Food Assistant Restaurant Manager 40 mg intra-articular 1 mL [id number] [employer] Total Dispensed Waste 1 mL 0 % lidocaine (PF) 20 mg/mL (2 %) injection solution Performing Provider: Giuseppe Faust DO Performing [facility] Administered by: Giuseppe Faust DO on 01/14/25 10:36 Dose Route Admin Location Dispensed Lot Number Expiration Date [facility] [employer] Food Assistant Restaurant Manager 120 mg intra-articular 10 mL [id number] [facility] Total Dispensed Waste 10 mL 40 % Assessment & Plan Assessment & Plan (1) Rotator cuff impingement syndrome of left shoulder: Code(s): M75.42 - Impingement syndrome of left shoulder Category: Medical (2) Cervical radiculitis: Code(s): M54.12 - Radiculopathy, cervical region Category: Medical (3) Cervical spinal stenosis: Code(s): M48.02 - Spinal stenosis, cervical region Category: Medical Plan Pain Management - Affect: The pain has been disrupting the patient's sleep. - Analgesia: Current pain level is an 8/10. - Activities of Daily Living: The patient avoids using the left arm for activ ities like cooking due to pain. - Aberrant Drug-Related Behaviors: No aberrant behaviors were noted. Plan Patient was informed and verbally consented to the use of an ambient scribe for clinic note documentation during this visit. 1. Left Shoulder Pain And Cervical Radiculopathy The patient's symptoms could be attributed to either cervical radiculopathy secondary to severe C4-C5 foraminal stenosis seen on MRI, or a primary shoulder pathology such as rotator cuff disease, given the pain pattern on physical exam. A left shoulder injection was administered to address a potential shoulder et iology. The patient reported immediate improvement in pain and range of motion post-injection. Additionally, the use of a thicker pillow was recommended to provide better neck support during sleep. 2. Follow-Up The patient will follow up in three months. The patient was instructed to ice the shoulder if it becomes sore and to continue moving it to prevent stiffness. The patient was advised to call sooner if problems arise. Discussion Notes I explained to the patient that the cervical spine MRI showed severe bilateral foraminal stenosis at C4-C5, which could be the cause of the shoulder pain. I also discussed that the pain could alternatively be from a shoulder issue, like rotator cuff disease, especially since the pain increases when lifting the arm and resolves when the arm is down. We agreed to proceed with a left shoulder injection as a diagnostic and therapeutic first step, and the patient provided consent. Risks and benefits of the procedure were discussed with the patient. Potential alternative measures were also discussed. Patient understands that the procedure is completely elective. Potential side effects associated with injectable medications were discussed. All questions were answered to the patient's satisfaction. I advised the patient that the shoulder may be sore for a day or two and to use ice as needed. I emphasized the importance of continuing to move the shoulder to prevent developing a frozen shoulder. I also recommended using a taller or thicker pillow to support the neck while side-sleeping. The plan is to follow up in three months, but the patient was instructed to call sooner if any problems arise. Patient Instructions - Apply ice to your left shoulder if it feels sore after the injection. - Continue to move your shoulder to prevent it from becoming stiff. - When sleeping on your side, try using a taller pillow or a couple of pillows to keep your neck supported and straight. - Your next follow-up visit is scheduled for three months from now. - Please call our office if your symptoms worsen or if you have any problems before your next appointment. Orders: Orders AMB Shoulder Injection Today M75.42 - Impingement syndrome of left shoulder Coding Level of Care Code Est Pt Level 4 (93625) Complex visit Add On G2211 Diagnoses Rotator cuff impingement syndrome of left shoulder M75.42 Cervical radiculitis M54.12 Cervical spinal stenosis M48.02 CPT Codes AMB Shoulder Injection - Hip/Bursa Injection - : Left ([id number])
--- OUTSIDE RECORDS SUMMARY | 2025-01-14 10:55 | XMS_ITS | Clinical Summary ---
Author Organization [facility] Address [address] [place] [address] Phone Care Team Providers Care Aging Room Operator Name Role Phone Lola Fink MD Primary Care Provider [phone] Allergies Active Allergy Reactions Criticality Noted Date Comments Hydrochlorothiazide 03/08/2021 Lactose Diarrhea 10/23/2017 Medications lamoTRIgine (LaMICtal) 200 mg tablet Take 1 tablet (200 mg total) by mouth. Active tolterodine LA (DETROL LA) 4 mg 24 hr capsule Take 1 capsule (4 mg total) by mouth 1 (one) time each day. 06/01/19 23 Active trospium 60 mg capsule,extended release 24hr Take 1 capsule (60 mg total) by mouth 1 (one) time each day. 04/04/19 23 Active amLODIPine (NORVASC) 10 mg tablet Take 1 tablet (10 mg total) by mouth. 06/03/19 22 Active buPROPion XL (WELLBUTRIN XL) 300 mg 24 hr tablet Take 1 tablet (300 mg total) by mouth. Active clonazePAM (KlonoPIN) 1 mg tablet Take 2 tablets (2 mg total) by mouth 2 (two) times a day. 04/03/19 24 Active FLUoxetine (PROzac) 40 mg capsule Take 2 capsules (80 mg total) by mouth 1 (one) time each day. Active ipratropium-albu teroL (DUONEB) 0.5-2.5 mg/3 mL nebulizer solution Inhale 3 mL by mouth. 04/18/19 24 Active QUEtiapine (SEROquel) 100 mg tablet Take 1 tablet (100 mg total) by mouth at bedtime. 03/21/19 24 Active rOPINIRole (REQUIP) 4 mg tablet Take 1 tablet (4 mg total) by mouth at bedtime. 10/30/19 24 Active diclofenac (VOLTAREN) 50 mg EC tablet Take 1 tablet (50 mg total) by mouth 2 (two) times a day. 10/31/19 24 Active medical supply, miscellaneous (MISCELLANEOUS MEDICAL SUPPLY MISC) [facility]. Devices (Fingertip Pulse Oximeter) [facility] 1 Each 0 05/06/2022 Sig - Route: 1 Each by Does not apply route as needed (for breathing difficulties) . - Does not apply Sent to pharmacy as: Fingertip Pulse Oximeter 05/07/19 Active labetaloL (NORMODYNE) 300 mg tablet TAKE 1 TABLET BY MOUTH TWICE A DAY 180 tablet 2 07/11/19 25 Active losartan (COZAAR) 100 mg tablet TAKE 1 TABLET BY MOUTH EVERY DAY 90 tablet 3 07/16/19 25 Active atorvastatin (LIPITOR) 20 mg tablet TAKE 1 TABLET BY MOUTH EVERY DAY 90 tablet 1 08/02/19 25 Active furosemide (LASIX) 20 mg tablet TAKE 1 TABLET BY MOUTH EVERY DAY 90 tablet 1 08/14/19 25 Active levothyroxine (SYNTHROID, LEVOTHROID) 175 mcg tablet TAKE 1 TABLET BY MOUTH EVERY DAY 90 tablet 1 08/16/19 25 Active Wegovy 1 mg/0.5 mL injection pen INJECT 1 MG UNDER THE SKIN EVERY 7 (SEVEN) DAYS. 2 mL 3 08/20/19 25 Active pantoprazole (PROTONIX) 20 mg EC tablet TAKE 1 TABLET BY MOUTH EVERY DAY 90 tablet 1 09/10/19 25 Active eszopiclone (LUNESTA) 2 mg tablet Take 1 tablet (2 mg total) by mouth at bedtime as needed. 09/06/19 25 Active fluticasone-umec lidinium-vilante rol (Trelegy Ellipta) 100-62.5-25 mcg inhalerIndicatio ns:Pulmonary emphysema, unspecified emphysema type,Severe asthma without complication, unspecified whether persistent Inhale 1 puff (100 mcg total) by mouth 1 (one) time each day. 60 each 11 09/20/19 25 026 Active valbenazine 40 mg capsule Take 1 capsule (40 mg total) by mouth 1 (one) time each day. Active hydrALAZINE (APRESOLINE) 25 mg tablet TAKE 1 TABLET BY MOUTH 3 TIMES A DAY (WITH 50MG) 270 tablet 3 10/12/19 25 Active fenofibrate (LOFIBRA) 54 mg tablet TAKE 1 TABLET BY MOUTH EVERY DAY 90 tablet 1 10/12/19 25 Active semaglutide (WEGOVY) 2.4 mg/0.75 mL injection pen Inject 2.4 mg under the skin every 7 (seven) days. 3 mL 3 10/17/19 25 Active ARIPiprazole (ABILIFY) 20 mg tablet Take 1 tablet (20 mg total) by mouth 1 (one) time each day. Active albuterol HFA (PROAIR HFA ; PROVENTIL HFA ; VENTOLIN HFA) 90 mcg/actuation inhaler Inhale 2 puffs by mouth every 6 (six) hours if needed for wheezing. Active aspirin 81 mg chewable tablet Chew 1 tablet (81 mg total) 1 (one) time each day. 90 each 1 11/14/19 25 026 Active spironolactone (ALDACTONE) 25 mg tablet TAKE 1 TABLET BY MOUTH EVERY DAY 90 tablet 1 12/31/19 25 Active meloxicam (MOBIC) 7.5 mg tablet TAKE 1 TABLET BY MOUTH EVERY DAY 30 tablet 1 01/02/20 25 Active predniSONE (DELTASONE) 10 mg tabletIndication s:COPD exacerbation,ast hma exacerbation Take 4 tablets (40 mg total) by mouth 1 (one) time each day for 3 days, THEN 3 tablets (30 mg total) 1 (one) time each day for 3 days, THEN 2 tablets (20 mg total) 1 (one) time each day for 3 days, THEN 1 tablet (10 mg total) 1 (one) time each day for 3 days. 30 each 01/03/20 25 025 Active hydrALAZINE (APRESOLINE) 50 mg tablet TAKE 1 TABLET BY MOUTH THREE TIMES A DAY 270 tablet 1 01/07/20 25 Active spironolactone (ALDACTONE) 25 mg tablet TAKE 1 TABLET BY MOUTH EVERY DAY 90 tablet 1 07/10/19 25 025 Discontinued hydrALAZINE (APRESOLINE) 50 mg tablet TAKE 1 TABLET BY MOUTH THREE TIMES A DAY 270 tablet 1 07/23/19 25 025 Discontinued meloxicam (MOBIC) 7.5 mg tablet TAKE 1 TABLET BY MOUTH EVERY DAY 30 tablet 1 10/03/19 25 025 Discontinued doxycycline (VIBRAMYCIN) 100 mg capsuleIndicatio ns:Chronic obstructive pulmonary disease with acute exacerbation ([facility] V24, CMS/[facility] V28) Take 1 capsule (100 mg total) by mouth 2 (two) times a day for 10 days. Take with at least 8 ounces (large glass) of water, do not lie down for 30 minutes after. Administer 2 hours before or after multivitamins , antacids, or other products containing polyvalent cations (i.e., calcium, iron, magnesium, selenium, zinc). 20 each 01/03/20 25 025 Active Problems Problem Noted Date Diagnosed Date Coronary artery calcification 11/13/2024 Assessment & Plan (11/13/2024 9:18 AM EDT): Seen on CT screening that she gets for her lungs. Given risk factors patient should start a baby aspirin. 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 This revealed the left ventricle cavity size is normal. There is mild concentric left ventricular hypertrophy. There is normal left ventricular regional wall motion. LVEF is hyperdynamic with an ejection fraction of over 70%. There is small less than 5 mmHg mid cavitary gradient at rest. There is no hemodynamically significant valve disease the ascending aorta is minimally dilated at 3.8 cm. There is normal pulmonary artery systolic pressure. Last Assessment & Plan: Continue low-dose Lasix. Assessment & Plan (11/13/2024 9:15 AM EDT): Appears euvolemic on exam. Continue to weigh yourself daily. Should continue to limit sodium consumption. Is utilizing the spironolactone 25 mg p.o. daily in addition to the furosemide 20 mg p.o. daily. I am going to update a BMP. To check for electrolytes and kidney function. I would like patient to reach out if she gains more than 2 pounds in a day or 5 pounds in a week. See most recent echocardiogram above. Assessment & Plan (05/07/2024 4:37 PM EDT): [...] (BMI) of 40.0 to 44.9 in adult ([facility] V24, [facility] V28) 04/12/2023 Assessment & Plan (10/01/2024 9:14 PM EDT): Tobacco abuse 04/12/2023 Hx of cardiac catheterization 04/12/2023 Overview (04/12/2023): Done on 07/22/2022 at [facility] w [facility] indication:shortness of breath w/ exertion Hx of deep venous thrombosis 04/12/2023 Overview (04/12/2023): Antepartum DVT. No current anticoagulant. History of stroke 04/12/2023 Obstructive sleep apnea hypopnea, mild Overview (04/12/2023): [facility] Home Sleep Apnea Test: Date 06/07/2022; BMI [...] new medication was started by her primary drafting instructor but it does not appear that she [...] today she was 95% assessed while seated. Assessment & Plan (11/13/2024 9:16 AM EDT): Emphasized the importance of smoking sensation. Follow low-sodium diet. Should use oxygen if she continue to desaturate. Bring the oxygen to her appointments. Nocturnal hypoxia 04/05/2022 Overview (04/12/2023): 03/01/2022 overnight [...] current smoker who is part of the [facility]. She presents today for follow up of [...] at home as well Assessment & Plan (11/13/2024 9:15 AM EDT): Well-controlled on current medication regiment. This includes spironolactone 25 mg p.o. daily, furosemide 20 mg p.o. daily, amlodipine 10 mg p.o. daily, hydralazine 75 mg p.o. twice daily, losartan 100 mg p.o. daily, and labetalol 300 mg p.o. twice daily. Educated on the importance of diet lifestyle to help further assist in reducing blood pressure. The patient was encouraged to follow low-salt low-fat diet, make purposeful strides towards weight loss, and engage in routine aerobic exercise as tolerated. Assessment & Plan (10/01/2024 9:14 PM EDT): Assessment & Plan (05/07/2024 4:37 PM EDT): [...] foods and saturated fat Assessment & Plan (11/13/2024 9:17 AM EDT): Going to update a lipid panel, LDL from 1 year prior was 88. Patient does have significant risk factors and would like to update a coronary calcium score, she reports she we will consider this at next visit/follow-up. Assessment & Plan (10/01/2024 9:14 PM EDT): Assessment & Plan (05/07/2024 4:37 PM EDT): Patient utilizing fenofibrate in addition to the statin. Continue on current medication regimen. Most recent LDL was 88 on 11/2023. Hypothyroidism 09/11/2017 Assessment & Plan (10/01/2024 9:14 PM EDT): Chronic obstructive pulmonar y disease (CMS/HCC V24, [...] Encounters Date Type Department Care Team Description 01/02/2025 2:20 PM EST Office Visit Pulmonology - [address] [place] [address] Niurka Bruner NP Chronic obstructive pulmonary disease with acute exacerbation (CMS/HCC V24, CMS/HCC V28) (Primary Dx); COPD with lower respiratory infection (CMS/HCC V24, CMS/HCC V28); Exercise hypoxemia; Nocturnal hypoxia; Eosinophilic asthma; Smoking greater than 40 pack years; Non-seasonal allergic rhinitis, unspecified trigger 01/02/2025 1:45 PM EST Clinical Support Pulmonology - [place] [address] [facility] [address] [place] [phone] Dyspnea on exertion 01/01/2025 Telephone Pulmonology - [place] [address] [facility] [address] [place] [phone] Niurka Bruner NP 12/19/2024 1:19 PM EST - 12/19/2024 11:59 PM EST Hospital Encounter [facility] CT Scan [address] [place] [phone] Encounter for screening for malignant neoplasm of respiratory organs; Nicotine dependence, cigarettes, uncomplicated Discharge Disposition: Home or Self Care 12/12/2024 Telephone Pulmonology - [place] [address] [facility] [address] [place] [phone] Niurka Bruner NP 11/28/2024 Telephone Lung Screening Program - [place] [address] [facility] [address] [place] [address] Claudia Gillette [place] 11/22/2024 Telephone Pulmonology [facility] [address] [facility] [address] [place] [phone] Niurka Bruner NP 11/13/2024 8:40 AM EDT Office Visit [facility] Cardiology [facility] [address] [facility] [address] [place] [address] Andrei Knowles NP Heart failure with preserved ejection fraction (HFpEF), unspecified HF chronicity (CMS/HCC V24, CMS/HCC V28) (Primary Dx); Essential hypertension; Hypercholesteremia; Pulmonary hypertension (CMS/HCC V24, CMS/HCC V28); Coronary artery calcification 11/13/2024 Telephone [facility] - [facility] [address] [facility] [address] [place] [address] Andrei Knowles NP 11/08/2024 Treatment Pulmonology - [place] [address] [facility] [address] [place] [address] Niurka Bruner, WAQAS Eosinophilic asthma (Primary Dx); Chronic obstructive pulmonary disease, unspecified COPD type ([facility] V24, [facility] V28) 11/07/2024 Telephone Pulmonology - [place] [address] [facility] [address] [place] [address] Niurka Bruner NP 11/05/2024 Telephone [facility] - [facility] [address] [facility] [address] [place] [address] Yris Johnston [place] 11/05/2024 Telephone Pulmonology [facility] [address] [facility] [address] [place] [phone] Niurka Bruner NP 10/23/2024 Telephone Pulmonology [facility] [address] [facility] [address] [place] [phone] Niurka Bruner NP 10/15/2024 Telephone Internal Medicine [facility] [address] [facility] [address] [place] [address] Lola Fink MD from Last 3 Months Immunizations Immunization Administration Dates Next Due Influenza Quadravalent, MDCK [...] obesity with BMI of 4 5.0-49.9, adult ([facility] V24, [facility] V28) 09/05/2017 DX:Morbid obesity wit h BMI of 45.0-49.9, adult ([facility]) Hypothyroidism 09/11/2017 DX:Hypothyroidis m Hypercholesteremia 09/11/2017 [...] attacks COPD (chronic obstructive pu lmonary disease) ([facility] V24, [facility] V28) 09/11/2017 DX:COPD (chronic o bstructive pulmonary disease) ([facility]); COMMENT: Diag w/ emphysema 2015 GERD [...] Used Date Smoking Tobacco: Every Day Cigarettes 3.5 Started: 06/28/2021 Smokeless Tobacco: Never Tobacco Cessation:Ready to Q uit: Not Asked; Counseling Given: Not Answered Alcohol Use Standard Drinks/Week Comments Not Currently 1 (1 standard drink = 0.6 oz pur e alcohol) socially Comments No Sex and Gender Information Value Date Recorded Sex Assigned at Female 12/15/2023 5:21 PM EDT Legal Sex Female 1:23 PM EST Gender Identity Female 12/15/2023 5:21 PM EDT Sexual Orientation Straight 12/15/2023 5: 21 PM EDT Obstetrics History * This document contains information received from the source organization and may not represent a complete record from that organization. Para Term AB IAB SAB Ectopic Multiple Livin g Live Births 4 3 3 3 3 Date Outcome GA Total Labor Labor/2nd/3rd Weight Sex Type Anes PTL Millicent A1 A5 Name Clin Term F Vag-S pont Living Term F Vag-S pont Living Term F Vag-S pont Living Last Filed Vital Signs Vital Sign Reading Time Taken Comments Blood Pressure 150/80 01/02/2025 1:57 PM EST Pulse 81 01/02/2025 1:57 PM EST Temperature 36.4 C (97.5 F) 01/02/2025 1:57 PM EST Respiratory Rate 20 01/02/2025 1:57 PM EST Oxygen Saturation 96% 01/02/2025 1:57 PM EST Inhaled Oxygen Concentration - - Weight 87.1 kg (192 lb) 01/02/2025 1:57 PM EST Height 165.1 cm (5' 5 ) 01/02/2025 1:57 PM EST Body Mass Index 31.95 01/02/2025 1:57 PM EST Plan of Treatment Upcoming Encounters Date Type Department Care Team (Late st Contact Info) Description 02/12/2025 2:30 PM EST Office Visit Internal Medicine - [address] [phone] Lola Fink MD [address] [place] [phone] 04/08/2025 2:00 PM EST Ancillary Procedure Pulmonology - [address] [phone] 04/08/2025 2:45 PM EST Office Visit Pulmonology - [address] [address] Niurka Bruner NP [address] [place] [address] Health Maintenance Due Date Last Done Comments Pneumococcal Vaccine: 50+ Years (3 of 3 - PCV20 or PCV21) 09/28/2016 08/03/2016, 11/13/2004 Hepatitis C Screening 01/22/2022 Osteoporosis Screening (Bone Density Screening) 01/22/2022 Social Influencers of Health Screening 01/22/2022 Hypertension/CHF/CAD Annual BMP Blood Test 07/05/2024 07/06/2023, 07/06/2023 Breast Cancer Screening 07/21/2024 07/22/19, 07/13/2021, 07/08/2020 COVID-19 Vaccine ( season) 2024 12/08/2021, 05/24/2021, 11/14/2020, Additional history exists Influenza Vaccine (#1) 2024 , 09/19/2022, 12/08/2021, Additional history exists Falls Risk Assessment 12/21/2024 12/22/2023 Medicare Annual Wellness Visit 12/21/2024 12/22/2023 Cervical Cancer Screening: HPV 07/21/2025 07/21/2020 DTaP,Tdap,and Td Vaccines (4 - Td or Tdap) 09/21/2025 09/22/2015, 02/11/2013, 09/15/2007 Cholesterol Screening (Lipid Panel) 07/05/2028 07/06/2023, 07/06/2023 Colorectal Cancer Screening: Colonoscopy 09/28/2028 09/28/2018 Zoster Vaccines Completed 01/16/2018, 10/20/2017 RSV Immunization Adult Patients Completed 11/26/2023 Depression Screening Completed 10/01/2024 HIB Vaccines Aged Out No longer eligi [...] Procedure Name Priority Date/Time Associated Diagnosis Comments SIX MINUTE WALK TEST Routine 01/02/2025 2:49 PM EST Dyspnea on exertion CT LUNG SCREENING Routine 12/19/2024 2:1 3 PM EST Encounter for screening for malignant neoplasm of respiratory organs Nicotine dependence, cigarettes, uncomplicated ANNUAL BMP BLOOD TEST Routine 07/06/2023 LIPID PANEL Routine 07/06/2023 SCREENING MAMMOGRAPHY BI 2-VIEW BREAST INC CAD Routine 07/21/2022 1:12 PM EDT Encounter for screening mammogram for malignant neoplasm of breast HPV Routine 07/21/2020 COLONOSCOPY Routine 09/28/2018 from Last 3 Months or Most Recently Relevant to Health Maintenance Results * 6 minute walk test (01/02/2025 2:49 PM EST) Impressions Chloe Connelly MD - 01/02/2025 2:49 PM EST Comments: Patient walked six minutes cane assist covering (70m/230ft) without Leg Fatigue, Mild to Moderate SOB was noted. Lowest oxygen saturation was 87%. Patient returned to PFT lab for Rest & Recovery. After 1 minute RA SpO2 = 97% HR = 76; After 2 min RA SpO2 = 98% HR = 76. Pt has indication for supplemental Oxygen for today's Activity on 3lpm us Niurka Bruner TAX PROFESSIONAL IN CLINIC/BEDSIDE ORDER JOSE ANTONIO Final Result * CT Lung Screening (12/19/2024 2:13 PM EST) Anatomical Region Laterality Modality Chest Computed Tomogra phy 12/25/2024 4:55 PM EST Impressions 12/25/2024 5:04 PM EST Lung RADS 2. Guidelines recommend repeat low-dose screening CT in 12 months. -------- FINAL REPORT -------- Dictated By: Rl Ragsdale Dictated Date: 12/25/2024 16:55 ET Assigned Physician: Rl Ragsdale Reviewed and Electronically Signed By: Rl Ragsdale Signed Date: 12/25/2024 17:04 ET Workstation ID: [id number] Transcribed By: Self Edit Transcribed Date: 12/25/2024 16:55 ET Narrative 12/25/2024 5:04 PM EST PROCEDURE: Low-dose CT of the chest without intravenous contrast. TECHNIQUE: Low-dose CT of the chest without intravenous contrast administration. Coronal and sagittal reformats and MIP reconstructions were created. Dose length product: 161 mGy-cm. HISTORY: Lung cancer screening, >=20 pk yr current smoker (Age 50-80y) COMPARISON: 12/17/2023. FINDINGS: Lungs/pleura: The central airways are clear and normal in caliber. Moderate centrilobular emphysema. There is a stable irregular confluent oval opacity in the posteromedial periphery of the left lower lobe. The morphology suggests that this represents round atelectasis. There are a few small foci of mucus plugging in the segmental bronchi. No suspicious pulmonary nodule or mass. Linear and groundglass opacities at the bases suggestive of atelectasis. No pleural effusion or pneumothorax. Mediastinum/israel: No mediastinal mass or lymphadenopathy. No appreciable hilar lymphadenopathy on limited noncontrast evaluation. Vasculature: Normal caliber pulmonary arteries. Stable mild prominence of the ascending aorta, measuring 4 cm. Moderate atherosclerotic calcifications of the aorta and great vessels. Cardiac: Normal heart size. Mild coronary artery calcification. Chest wall: No axillary or supraclavicular lymphadenopathy. Limited abdomen: Cholecystectomy. Stable bilateral low-attenuation adrenal nodules, left larger than right, suggesting adenomas. Partially visible dystrophic marginal calcification of the spleen. Bones: Small amount of intra-articular gas in the left glenohumeral joint. Mild diffuse degenerative changes of the spine. Procedure Note Rl Ragsdale MD - 12/25/2024 PROCEDURE: Low-dose CT of the chest without intravenous contrast. TECHNIQUE: Low-dose CT of the chest without intravenous contrastadministration. Coronal and sagittal reformats and MIP reconstructionswere created. Dose length product: 161 mGy-cm. HISTORY: Lung cancer screening, >=20 pk yr current smoker (Age 50-80y) COMPARISON: 12/17/2023. FINDINGS: Lungs/pleura: The central airways are clear and normal in caliber.Moderate centrilobular emphysema. There is a stable irregular confluentoval opacity in the posteromedial periphery of the left lower lobe. Themorphology suggests that this represents round atelectasis. There are afew small foci of mucus plugging in the segmental bronchi. No suspiciouspulmonary nodule or mass. Linear and groundglass opacities at the basessuggestive of atelectasis. No pleural effusion or pneumothorax. Mediastinum/israel: No mediastinal mass or lymphadenopathy. No appreciablehilar lymphadenopathy on limited noncontrast evaluation. Vasculature: Normal caliber pulmonary arteries. Stable mild prominence ofthe ascending aorta, measuring 4 cm. Moderate atheroscleroticcalcifications of the aorta and great vessels. Cardiac: Normal heart size. Mild coronary artery calcification. Chest wall: No axillary or supraclavicular lymphadenopathy. Limited abdomen: Cholecystectomy. Stable bilateral low-attenuationadrenal nodules, left larger than right, suggesting adenomas. Partiallyvisible dystrophic marginal calcification of the spleen. Bones: Small amount of intra-articular gas in the left glenohumeral joint.Mild diffuse degenerative changes of the spine. IMPRESSION: Lung RADS 2. Guidelines recommend repeat low-dose screening CT in 12months. -------- FINAL REPORT -------- Dictated By: Rl Ragsdale Dictated Date: 12/25/2024 16:55 ET Assigned Physician: Rl Ragsdale Reviewed and Electronically Signed By: Rl Ragsdale Signed Date: 12/25/2024 17:04 ET Workstation ID: [id number] Transcribed By: Self Edit Transcribed Date: 12/25/2024 16:55 ET Shanika Robles MD IMG CT PROCEDURES Final Result * Annual BMP Blood Test (07/06/2023) Pathologist [facility] Annual BMP Blood Test abstracted Historical Provider HEALTH MAINTENANCE Final Result * Lipid panel (07/06/2023) Pathologist [facility] LDL/HDL Ratio 3 0 - 4 Triglycerides [...] (07/21/2020) Cervical Cancer Screening: HPV negative, abstracted us Historical Provider HEALTH MAINTENANCE Final Result * Colonoscopy (09/28/2018) Colonoscopy no interpretation , abstracted Anatomical Region Laterality Modality Other us Historical Provider HEALTH MAINTENANCE Final Result from Last 3 Months or Most Recently Relevant to Health Maintenance Insurance [place] Advance Directives Documents on File Type Date Recorded Patient Transportation Maintenance Operator Expl anation Health Care Decision (hx) 04/23/2009 [...] (hx) 04/23/2009 AD KARIMI DIRECTIVE Care Teams Aging Room Operator Relationship Specialty Start Date End Date Lola Fink MD [address] [place] [phone] PCP - General Internal Medicine 05/02/24
--- OUTSIDE RECORDS SUMMARY | 2025-01-14 10:55 | XMS_ITS | Clinical Summary ---
Author Organization [facility] Facility Address [address] [address] Care Team Providers Care Senior Maintenance Mechanic Name Role Phone Ge Brown MD Primary Care Provider [phone] Allergies Active Allergy Reactions Criticality Noted Date [...] 10/12/2022 Overview (10/12/2022): Done on 07/22/2022 at [facility] indication:shortness of breath w/ exertion Last Assessment [...] new medication was started by her primary network support technician but it does not appear that she [...] Adopted 11/29/2007 10/12/2022 Urge incontinence of urine 11/29/2007 08/30 /2023 Immunizations Immunization Administration Dates Next Due H1N1 [...] to complete this topic Insurance Care Teams Senior Maintenance Mechanic Relationship Specialty Start Date End Date Ge Brown MD [address] [place] [id number] PCP - General Internal Medicine 06/13/22
== END 2025-01-14 10:42 | disposition home or self-care (01) ==
PROVIDERS: PCP Internal Medicine; Visit Provider Physical Medicine & Rehabilitation
DX: M75.42 Impingement syndrome of left shoulder (principal); M54.12 Radiculopathy, cervical region; M48.02 Spinal stenosis, cervical region
CPT/HCPCS: 20610; 99214

== ENCOUNTER → 2025-01-14 09:49 | Outpatient (BNVA) | payer MEDICARE, MEDICAID, SELFPAY | PROVIDERS: PCP Internal Medicine; Visit Provider Physical Medicine & Rehabilitation | DX: M75.42 Impingement syndrome of left shoulder (principal); M54.12 Radiculopathy, cervical region; M48.02 Spinal stenosis, cervical region | CPT/HCPCS: 20610; 99212; J2003; J3301 ==